=== PATIENT | female | born 1990 | race Caucasian/White ===

== ENCOUNTER 2019-08-23 05:00 | Inpatient (IN) ==
--- NOTE | 2019-08-23 05:04 | HISTORY AND PHYSICAL ---
HISTORY OF PRESENT ILLNESS: Ms. Villafana is a 28-year-old G3, P2, 0-0-2 at 38 weeks gestation who presents for repeat section with gestational diabetes type 2, insulin dependent. The patient reports good movement. Denies contractions, leakage of fluid, or vaginal bleeding. Current complicated by gestational diabetes, managed with insulin. Patient has received weekly nonstress test starting at 32 weeks of gestation and co-managed with Maternal Medicine. CURRENT MEDICATIONS: 1. vitamin daily. 2. Promethazine 25 mg p.o. q. 12 hours p.r.n. nausea. 3. Insulin NPH 41 units at breakfast and 55 units at bedtime. 4. Insulin Regular 22 units at breakfast and 15 units at dinner. ALLERGIES: No known drug allergies. PAST MEDICAL HISTORY: Type 2 gestational diabetes, insulin-dependent. PAST SURGICAL HISTORY: delivery x1. FINAL APPLICATION REVIEWER HISTORY: Menarche at age 7. Denies STD exposure. OBSTETRICAL HISTORY: G3, P2, 0-0-2. G1 06/08/2012 at 40 weeks, 8 pounds 1.92 ounces, spontaneous vaginal delivery. G2 01/26/2014 at 39 weeks, 9 pounds 9.6 ounces due to transverse position. FAMILY HISTORY: Noncontributory. SOCIAL HISTORY: Denies tobacco, alcohol, or drug use. PHYSICAL EXAMINATION: VITAL SIGNS: Temperature 98.8 degrees Fahrenheit, pulse rate 81, blood pressure 118/74, height 5 feet 7 inches, weight 290 pounds, and body mass index 45.4 kg/m2. GENERAL: No acute distress. Alert, awake, and oriented x3. CARDIOVASCULAR: Regular rate and rhythm. Positive S1, S2. RESPIRATORY: Clear to auscultation bilaterally. Negative rhonchi, rales, or wheezing. ABDOMEN: Gravid, soft. Nontender to palpation. EXTREMITIES: Lower extremities with +2 edema. Negative calf tenderness. LABORATORY: WBC 6.88, hemoglobin 12.9, hematocrit 39.9, and platelets 244,000. RPR nonreactive. Gonorrhea Chlamydia negative. HIV nonreactive. GBS negative. ASSESSMENT: Mrs. Villafana is a 28-year-old G3, P2, 0-0-2 at 38 weeks gestation who presents for a repeat delivery due to well-controlled gestational diabetes treated with insulin. PLAN: 1. Admit to Labor and Delivery. 2. Plan for repeat delivery. 3. We will give IV antibiotics 1 hour prior to incision. 4. Patient counseled on risks, benefits, and alternatives to procedure. The risks not limited to infection, bleeding, injury to surrounding organs including bowel, bladder, and ureters. The patient understands risks and agrees to procedure. 5. We will obtain heart rate pre and post spinal procedure. [facility] CENTERJoe
[2019-08-23] MEDS ORDERED: PEPCID PO ONE (05:10)
[2019-08-23] MEDS ORDERED: REGLAN PO ONE (05:10)
[2019-08-23] MEDS ORDERED: KEFZOL 1 GM/D5W 1 GM/50 ML IVPB IV PRN (05:10)
[2019-08-23] MEDS ORDERED: BICITRA PO ONE (05:13)
[2019-08-23] MEDS ORDERED: KEFZOL 2 GM/D5W 2 GM/50 ML IVPB IV ONE (05:15)
[2019-08-23] MEDS ORDERED: LR 1,000 ML IV SCH (05:15)
[2019-08-23 06:19] LABS: URINE SOURCE VOIDED
[2019-08-23 06:21] LABS: BASO# 0.02 X1000 (0.0-0.2); BASO% 0.3 % (0.0-0.8); EOS# 0.11 X1000 (0.0-0.7); EOS% 1.6 % (0.0-10.0); HEMOGLOBIN 13.1 g/dL (12.0-16.0); IMM GRAN# 0.05 X1000 (0.0-0.04); IMM GRAN% 0.7 % (0.0-0.5); LYMPH# 1.07 X1000 (1.2-3.4); LYMPH% 15.2 % (20.5-51.1); MCH 30.2 PG (27-31); MCHC 32.8 g/dL (33-37); MCV 92.2 FL (81-99); MONO# 0.79 X1000 (0.11-0.59); MONO% 11.2 % (1.7-9.3); MPV 9.5 FL (7.4-10.4); NEUT# 5.02 X1000 (1.4-6.5); PLT 191 X1000 (130-400); RBC 4.34 XMIL (4.2-5.4); RDW 14.3 % (11.5-14.5); WBC 7.06 X1000 (4.8-10.8)
--- NOTE | 2019-08-23 06:31 | H&P REVIEW ---
H&P Update H&P Review: H&P was reviewed and patient was examined, No change has occurred in the patient's condition
[2019-08-23 06:34] LABS: UR AMPHETAMINES QUAL NONE DETECTED (NONE DETECT); UR BARBITUATES QUAL NONE DETECTED (NONE DETECT); UR BENZODIAZEPIN QUAL NONE DETECTED (NONE DETECT); UR CANNABINOIDS QUAL NONE DETECTED (NONE DETECT); UR COCAINE QUAL NONE DETECTED (NONE DETECT); UR METHADONE QUAL NONE DETECTED (NONE DETECT); UR OPIATES QUAL NONE DETECTED (NONE DETECT); UR OXYCODONE QUAL NONE DETECTED (NONE DETECT); UR PCP QUAL NONE DETECTED (NONE DETECT)
[2019-08-23] MEDS ORDERED: EPHEDRINE ONE (06:41)
[2019-08-23] MEDS ORDERED: PITOCIN ONE ×3 (06:41→08:04)
[2019-08-23] MEDS ORDERED: FENTANYL ONE (06:42)
[2019-08-23] MEDS ORDERED: DURAMORPH ONE (06:50)
[2019-08-23] MEDS ORDERED: ZOFRAN ONE ×2 (07:07→07:35)
[2019-08-23 07:29] LABS: BILIRUBIN URINE NEGATIVE (NEGATIVE); BLOOD URINE NEGATIVE (NEGATIVE); COLOR YELLOW; GLUCOSE URINE NEGATIVE (NEGATIVE); KETONE URINE 10 mg/dL (NEGATIVE); LEUKOCYTES URINE NEGATIVE (NEGATIVE); NITRITE URINE NEGATIVE (NEGATIVE); PROTEIN URINE NEGATIVE (NEGATIVE); SP GRAVITY URINE 1.007; TURBIDITY URINE CLEAR (CLEAR); UROBILINOGEN URINE NORMAL (NORMAL)
[2019-08-23] MEDS ORDERED: NEO-SYNEPHRINE ONE (07:35)
[2019-08-23] MEDS ORDERED: TORADOL ONE (07:36)
[2019-08-23] MEDS ORDERED: ATARAX PO PRN (08:15)
[2019-08-23] MEDS ORDERED: BOOSTRIX VACCINE IM ONE (08:15)
[2019-08-23] MEDS ORDERED: DEMEROL PO PRN ×2 (08:15)
[2019-08-23] MEDS ORDERED: M-M-R II VACCINE SUBQ ONE (08:15)
[2019-08-23] MEDS ORDERED: DULCOLAX PR PRN (08:15)
[2019-08-23] MEDS ORDERED: AMBIEN PO PRN (08:15)
[2019-08-23] MEDS ORDERED: PITOCIN IM PRN (08:15)
[2019-08-23] MEDS ORDERED: MYLICON PO PRN (08:15)
[2019-08-23] MEDS ORDERED: PHENERGAN IM PRN (08:15)
[2019-08-23] MEDS ORDERED: PITOCIN 20 UNITS/NS 20 UNITS/1,000 ML IV.SOLN IV ONE (08:15)
[2019-08-23] MEDS ORDERED: HYDROXYZINE IM PRN (08:15)
[2019-08-23] MEDS ORDERED: DEMEROL IM PRN (08:15)
[2019-08-23] MEDS ORDERED: DEMEROL ONE (08:28)
[2019-08-23] MEDS ORDERED: MORPHINE IV PRN (08:52)
[2019-08-23] MEDS ORDERED: ZOFRAN IV PRN ×2 (09:00)
[2019-08-23] MEDS ORDERED: NARCAN INJ PRN (09:00)
[2019-08-23] MEDS ORDERED: ZOFRAN ODT PO PRN (09:00)
[2019-08-23] MEDS ORDERED: BENADRYL IV PRN (09:00)
[2019-08-23] MEDS: MYLICON PO SCH ×4 (09:58→20:29)
[2019-08-23] MEDS: PITOCIN 10 UNITS/NS 1,000 ML IV SCH ×2 (11:55→19:50)
[2019-08-23] MEDS: PRECARE PO SCH (18:18)
[2019-08-23] MEDS: PERICOLACE PO SCH (20:29)
[2019-08-23] MEDS: PERCOCET-5 PO PRN (23:38)
[2019-08-24 07:00] LABS: BASO# 0.05 X1000 (0.0-0.2); BASO% 0.5 % (0.0-0.8); EOS# 0.19 X1000 (0.0-0.7); HEMATOCRIT 34.1 % (37.0-47.0); HEMOGLOBIN 10.9 g/dL (12.0-16.0); IMM GRAN# 0.03 X1000 (0.0-0.04); IMM GRAN% 0.3 % (0.0-0.5); LYMPH% 12.9 % (20.5-51.1); MCH 30.1 PG (27-31); MCV 94.2 FL (81-99); MONO# 0.89 X1000 (0.11-0.59); MONO% 9.6 % (1.7-9.3); MPV 9.3 FL (7.4-10.4); NEUT# 6.91 X1000 (1.4-6.5); NEUT% 74.7 % (42.2-75.2); PLT 159 X1000 (130-400); RBC 3.62 XMIL (4.2-5.4); RDW 14.6 % (11.5-14.5); WBC 9.27 X1000 (4.8-10.8)
--- NOTE | 2019-08-24 07:33 | OB/GYN PROGRESS NOTE ---
- Subjective 28yo POD#1 s/p repeat CD at 38 weeks for gestational DM. Pt is currently without complaints. Reports paipn well controlled on PO pain meds. Tolerating diet, denies N/V. Decreased lochiaa. Denies fever, chills , CP or SOB. OB Physical Exam Vital Signs - 8 hr 08/24/19 00:18 08/24/19 07:23 Temperature 98.2 F 100 F H Pulse Rate 87 83 Respiratory Rate 18 20 Blood Pressure 133/65 102/57 O2 Sat by Pulse Oximetry 96 - CONSTITUTIONAL General Appearance: appears well, alert, no apparent distress - RESPIRATORY Respiratory: lungs clear - CARDIOVASCULAR Cardiovascular: regular rate, rhythm - GASTROINTESTINAL (ABDOMEN) Abdominal Exam: non tender (FF at umbilicus), soft - MUSCULOSKELETAL Extremity: no calf tenderness - SKIN Integumentary: normal color, warm/dry (Incision: c/d/i) - PSYCHIATRIC Psych/Mental Status: normal mood/affect, oriented x 3 Active Medications Generic Name Dose Route Start Last Admin Trade Name Freq PRN Reason Stop Dose Admin Hydrocodone Bitart/Acetaminophen 1 each 08/23/19 08:15 [place]-10 PO Q3-4H PRN PRN Pain (7-10 on Pain Scale) Bisacodyl 10 mg 08/23/19 08:15 Dulcolax [place] PRN PRN gas unrelieved by Mylicon Diphenhydramine HCl 12.5 mg 08/23/19 09:00 Benadryl IV 08/24/19 08:59 Q6H PRN PRN ITCHING IF ZOFRAN INEFFECTIVE Hydroxyzine HCl 50 mg 08/23/19 08:15 Atarax PO Q3-4H PRN PRN Nausea Hydroxyzine HCl 50 mg 08/23/19 08:15 Hydroxyzine IM Q3-4H PRN PRN Nausea Lactated Ringer's 1,000 mls @ 0 mls/hr 08/23/19 05:15 08/23/19 06:32 Lr IV 125 mls/hr .Q0M MAGO Administration As Directed Lactated Ringer's 1,000 mls @ 125 mls/hr 08/24/19 08:15 Lr IV .Q8H MAGO Ibuprofen 800 mg 08/23/19 08:15 Motrin PO Q8H PRN PRN Pain Meperidine HCl 50 mg 08/23/19 08:15 Demerol IM Q3H PRN PRN Pain Meperidine HCl 50 mg 08/23/19 08:15 Demerol PO Q4H PRN PRN Pain (1-6 on Pain Scale) Meperidine HCl 100 mg 08/23/19 08:15 Demerol PO Q4H PRN PRN Pain (7-10 on Pain Scale) Morphine Sulfate 2 - 4 mg 08/23/19 08:52 Morphine IV Q2H PRN PRN Pain Naloxone HCl 0.4 mg 08/23/19 09:00 Narcan INJ 08/24/19 08:59 DIRECTED PRN PRN Ondansetron HCl 4 mg 08/23/19 09:00 Zofran Odt PO 08/24/19 08:59 DIRECTED PRN PRN Ondansetron HCl 4 mg 08/23/19 09:00 Zofran IV 08/24/19 08:59 DIRECTED PRN PRN Ondansetron HCl 4 mg 08/23/19 09:00 Zofran IV 08/24/19 08:59 Q4-6H PRN PRN Itching Oxycodone/Acetaminophen 1 each 08/23/19 08:15 08/23/19 23:38 Percocet-5 PO 1 each Q3-4H PRN PRN Administration Pain (1-6 on Pain Scale) Oxytocin 20 unit 08/23/19 08:15 Pitocin IM PRN PRN Severe bleeding Multivit/Folic Acid/Iron 1 each 08/23/19 09:00 08/23/19 18:18 Precare PO 1 each DAILY MAGO Administration Promethazine HCl 25 mg 08/23/19 08:15 Phenergan IM Q3H PRN PRN Pain Senna/Docusate Sodium 1 each 08/23/19 21:00 08/23/19 20:29 Pericolace PO 1 each QHS MAGO Administration Simethicone 80 mg 08/23/19 09:00 08/23/19 20:29 Mylicon PO 80 mg PC + HS MAGO Administration Simethicone 80 mg 08/23/19 08:15 Mylicon PO PRN PRN GAS Zolpidem Tartrate 10 mg 08/23/19 08:15 Ambien PO HS PRN PRN Sleep Laboratory Results - last 24 hr 08/23/19 08/23/1908/23/20 05:00 16:38 06:49 WBC 9.27 RBC 3.62 L Hgb 10.9 L D Hct 34.1 L MCV 94.2 MCH 30.1 MCHC 32.0 L RDW Std Deviation 14.6 H Plt Count 159 MPV 9.3 Immature Gran % (Auto) 0.3 Neut % (Auto) 74.7 Lymph % (Auto) 12.9 L [place] % (Auto) 9.6 H Eos % (Auto) 2.0 Baso % (Auto) 0.5 Immature Gran # (Auto) 0.03 Neut # (Auto) 6.91 H Lymph # (Auto) 1.20 S[place]th # (Auto) 0.89 H Eos # (Auto) 0.19 Baso # (Auto) 0.05 POC Glucose 82 Urine Color YELLOW Urine Turbidity CLEAR Urine pH 6.0 Ur Specific [place] 1.007 Urine Protein NEGATIVE Ur Glucose (Stick) NEGATIVE Ur Ketones (Stick) 10 A Urine Blood NEGATIVE Urine Nitrite NEGATIVE Urine Bilirubin NEGATIVE Urobilinogen Dipstick NORMAL Urine Leukocytes NEGATIVE OB Assessment & Plan (1) delivery delivered Status: Acute Plan: 28yo POD#1 s/p repeat CD with GDMA-2 -HD stable -continue PO pain meds -oob to ambulation -d/c hood -hep lock iv -reg diet -con't routine PP care
[2019-08-24] MEDS: NORCO-10 PO PRN ×2 (07:47→12:05)
[2019-08-24] MEDS ORDERED: LR 1,000 ML IV SCH (08:15)
[2019-08-24] MEDS: PRECARE PO SCH (08:57)
[2019-08-24] MEDS: MYLICON PO SCH ×4 (08:57→20:28)
[2019-08-24] MEDS: PERCOCET-5 PO PRN ×2 (16:27→22:53)
[2019-08-24] MEDS: PERICOLACE PO SCH (20:28)
[2019-08-24] MEDS: MOTRIN PO PRN (22:53)
[2019-08-25] MEDS: PERCOCET-5 PO PRN (03:40)
[2019-08-25 08:21] VITALS: BP 118/59
[2019-08-25] MEDS: MYLICON PO SCH (09:22)
[2019-08-25] MEDS: PRECARE PO SCH (09:22)
[2019-08-25] MEDS: MOTRIN PO PRN (09:26)
--- NOTE | 2019-08-25 11:28 | DISCHARGE SUMMARY ---
ADMISSION DATE: 08/23/2019 DISCHARGE DATE: 08/25/2019 DISCHARGE DIAGNOSES: 1. Previous section. 2. Status post repeat section. 3. Mild anemia. 4. Rh positive. 5. RPR nonreactive. PROCEDURE: Repeat low-transverse section on 08/23/2019. HOSPITAL COURSE: Almas is a 28-year-old female who is now a 3, para 3-0-0-3. She presented at 38 weeks for a repeat section. She has a history of gestational diabetes type 2 and her blood sugars were managed on insulin NPH (41 units in the a.m. and 55 units in the p.m.) and regular insulin (22 units in the a.m. and 15 units p.m.) She presented for a repeat section and underwent an unremarkable surgery. A viable male was delivered without complication. Her postoperative course was unremarkable. Her pain was controlled with analgesics. When the feeling of her lower extremities returned, she ambulated without difficulty. In addition, she showered without assistance. Her lochia was light in flow. She breast fed her son. PHYSICAL EXAMINATION: On day 2, she underwent an examination and appeared stable: Heart: Regular rhythm and rate without murmur. Lungs: Clear to auscultation bilaterally. Abdomen: Soft, appropriate tenderness to palpation, firm fundus; incision was visualized and was healing well without oozing, erythema or induration. Extremities: Without clubbing, cyanosis, or edema. The patient stated that she wanted to go home on postoperative day two, and she was found to be stable for discharge. DISCHARGE MEDICATIONS: Prescriptions were sent to her pharmacy electronically which included: 1. Oxycodone 5/325 mg, #20, with instructions to take 1 tablet by mouth every 6 hours as needed for pain, no refills. 2. Motrin 800, #30, with instructions to take 1 tablet by mouth every 8 hours, no refills. 3. She is to continue to take her daily vitamin with iron as she has mild anemia (hemoglobin 10.9, hematocrit 34.1). 4. She received a vaccination for tetanus pertussis and diphtheria during her admission. 5. She received a booster for measles, mumps and rubella during her admission. DISCHARGE DISPOSITION: Almas was discharged to home in stable condition on postoperative day #2. DISCHARGE INSTRUCTIONS: Instructions were provided to her by me and her nurse. She is to follow up in the office with Dr. Mahoney in 1 week for an incision assessment and in 6 weeks for her exam. CC: Marta Mahoney D.O.
== END 2019-08-25 11:40 | disposition home or self-care (01) | DRG 788 ==
LOC: LD 05:00
PROVIDERS: ADMIT Obstetrics & Gynecology; ATTEND Obstetrics & Gynecology